=== PATIENT | male | born 1970 | race American Indian/Alaskan Native ===

== ENCOUNTER 2021-08-20 12:02 | Outpatient (REF) | payer MEDICAID, SELFPAY | END 2021-08-20 12:03 | disposition home or self-care (01) | LOC: HO.LNP 12:02 | PROVIDERS: Visit Provider Surgery | DX: L02.811 Cutaneous abscess of head [any part, except face] (principal) | CPT/HCPCS: 10060; 87071; 87077; 87186; 87205; 99202 ==

== ENCOUNTER → 2021-08-27 11:55 | Outpatient (BNVA) | payer MEDICAID, SELFPAY | PROVIDERS: Visit Provider Surgery | DX: Z48.817 Encounter for surgical aftercare following surgery on the skin and subcutaneous tissue (principal); Z87.2 Personal history of diseases of the skin and subcutaneous tissue | CPT/HCPCS: 99212 ==

== ENCOUNTER → 2021-08-31 09:43 | Outpatient (BNVA) | payer MEDICAID, SELFPAY | PROVIDERS: Visit Provider Surgery | DX: Z48.817 Encounter for surgical aftercare following surgery on the skin and subcutaneous tissue (principal); Z87.2 Personal history of diseases of the skin and subcutaneous tissue; R51.9 Headache, unspecified | CPT/HCPCS: 99212 ==

== ENCOUNTER → 2021-09-07 14:43 | Outpatient (BNVA) | payer MEDICAID, SELFPAY | PROVIDERS: Visit Provider Surgery | DX: Z48.817 Encounter for surgical aftercare following surgery on the skin and subcutaneous tissue (principal); L72.0 Epidermal cyst; R51.9 Headache, unspecified | CPT/HCPCS: 99212 ==

== ENCOUNTER 2021-09-16 09:15 | Outpatient (REF) | payer MEDICAID, SELFPAY ==
[2021-09-16 12:08] LABS: Blood Urea Nitrogen 14 mg/dL (9-16); Estimated Glomerular Filt Rate > 60
== END 2021-09-16 09:16 | disposition home or self-care (01) ==
LOC: HO.LAB 09:15
PROVIDERS: Visit Provider Surgery
DX: L02.811 Cutaneous abscess of head [any part, except face] (principal); L72.0 Epidermal cyst; R51.9 Headache, unspecified; H93.19 Tinnitus, unspecified ear; Z79.899 Other long term (current) drug therapy
CPT/HCPCS: 11402; 36415; 82565; 84520; 88304; 99212

== ENCOUNTER → 2021-09-23 12:58 | Outpatient (BNVA) | payer MEDICAID, SELFPAY | PROVIDERS: Visit Provider Surgery | DX: Z48.817 Encounter for surgical aftercare following surgery on the skin and subcutaneous tissue (principal); Z87.2 Personal history of diseases of the skin and subcutaneous tissue; R51.9 Headache, unspecified; H93.11 Tinnitus, right ear | CPT/HCPCS: 99212 ==

== ENCOUNTER 2021-10-06 10:22 | Outpatient (REF) | payer MEDICAID, SELFPAY ==
--- NOTE | ~2021-10-06 | CT_ITS ---
EXAMINATION: CT HEAD WITH/WITHOUT CONTRAST CLINICAL INFORMATION: Cutaneous abscess of head. COMPARISON: None TECHNIQUE: Contiguous axial imaging was performed from the skull base to vertex before and after the administration of 100 mL of Omnipaque [address] examination was performed using dose optimization techniques as appropriate, variously including the following: *Automated exposure control *Adjustment of mA and/or kV according to patient size (this includes techniques or standardized protocols for targeted exams where dose is matched to indication/reason for exam; i.e. extremities or head) *Use of iterative reconstruction technique DLP: 2119 mGy-cm FINDINGS: There is no evidence of acute intracranial hemorrhage or territorial infarction. No abnormal mass effect or midline shift is seen. Jeffery to white matter differentiation is well preserved. No extra-axial fluid collections are identified. Postcontrast there is no intracranial abnormal enhancement seen. The ventricles are normal in size. There is no abnormal attenuation within the brain parenchyma. The osseous structures are normal. There is a soft tissue density seen in the right posterior occipital region extending into the upper posterior neck without any air-fluid level with tiny pocket of air collection likely a microabscess.. The inferior extent of soft tissue density is not included in the [id number]. There is mild mucoperiosteal thickening bilateral maxillary sinuses. Rest of the paranasal sinuses and mastoid air cells are well-aerated. CT/CT head/brain wo/w con IMPRESSION: Soft tissue cellulitis right posterior occipital region extending into the posterior upper neck. The inferior extent is not included in the [id number]. There is a tiny pocket of air collection likely a small microabscess. No large abscess seen.
[2021-10-06] MEDS: iohexoL 350 MG/ML 100 ML INFUS..BTL IV (12:01)
== END 2021-10-06 10:23 | disposition home or self-care (01) ==
LOC: HO.CT 10:22
PROVIDERS: Visit Provider Surgery
DX: L02.811 Cutaneous abscess of head [any part, except face] (principal); R51.9 Headache, unspecified
CPT/HCPCS: 70470; Q9967

== ENCOUNTER → 2021-10-11 14:10 | Outpatient (BNVA) | payer MEDICAID, SELFPAY | PROVIDERS: Visit Provider Internal Medicine | DX: L76.82 Other postprocedural complications of skin and subcutaneous tissue (principal); L02.811 Cutaneous abscess of head [any part, except face]; R51.9 Headache, unspecified; H93.11 Tinnitus, right ear | CPT/HCPCS: 99202 ==

== ENCOUNTER → 2021-10-14 15:26 | Outpatient (BNVA) | payer MEDICAID, SELFPAY | PROVIDERS: Visit Provider Surgery | DX: L02.811 Cutaneous abscess of head [any part, except face] (principal); R51.9 Headache, unspecified | CPT/HCPCS: 99212 ==